=== PATIENT | female | born 1965 | race African-American/Black ===

== ENCOUNTER 2018-12-08 03:01 | Observation (INO) ==
[2018-12-08] MEDS ORDERED: MECLIZINE 25 MG TABLET PO STA (03:36)
[2018-12-08] MEDS ORDERED: PROMETHAZINE 25 MG/1 ML VIAL IM STA (03:36)
[2018-12-08] MEDS ORDERED: SODIUM CHLORIDE 0.9% 500 ML IV STA (03:36)
[2018-12-08 05:03] LABS: Basophils # 0.1 10*3/uL (0.0-0.2); Basophils % 0.4 % (0.0-0.8); Eosinophils % 0.2 % (0.00-10.9); Hematocrit 48.9 VOL% (35.7-47.0); Hemoglobin 15.9 GM/DL (12.0-16.0); Immature Granulocytes % 0.9 %; Lymphocytes # 1.5 10*3/uL (1.4-4.0); Mean Corpuscular HGB Conc 32.5 GM/DL (32-36); Mean Corpuscular Hemoglobin 28 PG (27-34); Mean Corpuscular Volume 87.3 FL (87-102); Mean Platelet Volume 9.6 FL (9.6-12.0); Monocytes # 0.4 10*3/uL (0.11-0.8); Monocytes % 3.7 % (1.7-12.7); Neutrophils # 9.4 10*3/uL (1.4-7.4); Neutrophils % 81.8 % (38.7-73.9); Platelet Count 297 T/CUMM (130-400); Red Cell Distribution Width 13.3 % (9.3-17.3); White Blood Count 11.5 T/CUMM (4-12)
[2018-12-08 05:27] LABS: Alanine Aminotransferase 68 U/L (13-56); Albumin 3.9 G/DL (3.4-5.0); Alkaline Phosphatase 170 U/L (45-117); Amylase 37 U/L (25-115); Aspartate Amino Transferase 20 U/L (0-37); Blood Urea Nitrogen 17 MG/DL (7-18); Calcium 9.6 MG/DL (8.5-10.1); Glucose 378 MG/DL (74-106); Osmolality,Calculated 283.4 MOS/KG (273-304); Potassium 3.8 MMOL/L (3.5-5.1); Sodium 133 MMOL/L (136-145); Total Protein 9.5 G/DL (6.4-8.3)
[2018-12-08 05:31] LABS: Apearance,Urine CLEAR (Clear); Bilirubin,Urine Negative (Negative); Blood, Urine Negative (Negative); Glucose,Urine (UA) >=500 mg/dL (Negative); Hyaline Casts,Urine 4 /LPF (0-3); Ketones,Urine 20 mg/dL (Negative); Mucus,Urine Occasional /LPF (Occasional); Nitrite,Urine Negative (Negative); Protein,Urine 100 MG/DL; RBC,Urine 2 /HPF (0-4); Squamous Epithelial Cell,Urine Occasional /HPF (0-10); Urine Color Yellow (Yellow); Urine Specific Gravity 1.024 (1.001-1.035); Urine Urobilinogen < 2.0 EU/DL (0.2-1.0); WBC,Urine 1 /HPF (0-6)
[2018-12-08] MEDS ORDERED: INSULIN REGULAR 100 UNIT/ML SUBCUT STA (05:31)
[2018-12-08] MEDS ORDERED: GLUCAGON 1 MG VIAL IM PRN (06:10)
[2018-12-08] MEDS ORDERED: PROMETHAZINE 25 MG/1 ML VIAL IM PRN (06:10)
[2018-12-08] MEDS ORDERED: DEXTROSE 50% 25 GM/50 ML VIAL IV PRN (06:10)
[2018-12-08] MEDS ORDERED: MECLIZINE 25 MG TABLET PO PRN (08:02)
[2018-12-08] MEDS ORDERED: hydrALAZINE 20 MG/1 ML VIAL IV PRN (08:02)
[2018-12-08] MEDS: INSULIN REGULAR 100 UNIT/ML SUBCUT SCH ×4 (09:03→20:39)
[2018-12-08] MEDS: SODIUM CHLORIDE 0.9% 1,000 ML IV SCH ×3 (09:04→20:44)
[2018-12-08] MEDS ORDERED: ACETAMINOPHEN 325 MG TABLET PO PRN (12:05)
[2018-12-08 15:02] LABS: Troponin I 0.027 NG/ML (0.00-0.045)
[2018-12-08] MEDS: cloNIDine 0.1 MG TABLET PO SCH ×2 (15:35→20:39)
[2018-12-08] MEDS: INSULIN NPH 100 UNIT/ML SUBCUT SCH (17:41)
[2018-12-08] MEDS: METOPROLOL TARTRATE 50 MG TABLET PO SCH (20:39)
[2018-12-09] MEDS: SODIUM CHLORIDE 0.9% 1,000 ML IV SCH (05:31)
[2018-12-09] MEDS ORDERED: LEVOTHYROXINE 175 MCG TABLET PO SCH (06:30)
[2018-12-09] MEDS: METOPROLOL TARTRATE 50 MG TABLET PO SCH (08:52)
[2018-12-09] MEDS: cloNIDine 0.1 MG TABLET PO SCH (08:53)
[2018-12-09] MEDS: INSULIN REGULAR 100 UNIT/ML SUBCUT SCH (08:56)
[2018-12-09] MEDS: INSULIN NPH 100 UNIT/ML SUBCUT SCH (08:57)
[2018-12-09] MEDS ORDERED: amLODIPine 10 MG TABLET PO SCH (09:00)
[2018-12-09] MEDS ORDERED: MONTELUKAST 10 MG TABLET PO SCH (09:00)
[2018-12-09] MEDS ORDERED: ATORVASTATIN 40 MG TABLET PO SCH (09:00)
[2018-12-09 10:50] VITALS: BP 128/78
== END 2018-12-09 11:24 | disposition home or self-care (01) ==
LOC: N.EDINP 03:01 → N.ED 03:01 → SUATTDRO 06:10 → N.5E 07:45
PROVIDERS: ADMIT Internal Medicine Cardiovascular Disease; ATTEND Hospitalist